=== PATIENT | male | born 1995 ===

== ENCOUNTER 2024-02-08 10:29 | Inpatient (IN) | payer OTHER ==
[~2024-02-08] VITALS: Ht 170.2 cm; Wt 89.8 kg
[2024-02-15] MEDS ORDERED: CEFTRIAXONE SODIUM 2,000 MG VIAL IV ONE (18:00)
[2024-02-15] MEDS ORDERED: METRONIDAZOLE/SODIUM CHLORIDE 500 MG/100 ML PIGGYBACK IV ONE (18:00)
[2024-02-15] MEDS ORDERED: BUPIVACAINE HCL 30 ML VIAL IJ ONE (18:00)
[2024-02-15] MEDS ORDERED: LIDOCAINE HCL 1%/EPINEPHRINE 20ML VIAL IJ ONE (18:00)
[2024-02-15] MEDS ORDERED: MORPHINE SULFATE 4 MG/ML CARTRIDGE IV PRN (20:30)
[2024-02-15] MEDS ORDERED: ONDANSETRON HCL 2 MG/ML VIAL IV PRN (20:30)
[2024-02-15] MEDS ORDERED: DEXTROSE 50 % IN WATER 0.5 G/ML DISP.SYRIN IV PRN (20:30)
[2024-02-15] MEDS ORDERED: OxyCODONE HCL 5 MG TABLET (ROXICODONE) PO PRN (20:30)
[2024-02-15] MEDS ORDERED: RINGERS SOLUTION,LACTATED 1,000 ML IV SCH (20:30)
[2024-02-15] MEDS ORDERED: SIMETHICONE 125 MG CAPSULE PO SCH (21:00)
[2024-02-15] MEDS ORDERED: FAMOTIDINE/PF 20 MG/2 ML VIAL IV PUSH SCH (21:00)
[2024-02-15] MEDS ORDERED: MORPHINE SULFATE 4 MG/ML VIAL IV ONE (22:10)
[2024-02-15 23:25] LABS: HEMATOCRIT 43.9 % (39.0-48.0); HEMOGLOBIN 15.2 g/dL (13-16.00); MEAN CELL VOLUME 82.5 fL (80.0-100.00); MEAN CORPUSCULAR HEMOGLOBIN 28.5 pg (27.00-32.0); MEAN CORPUSCULAR HGB CONC 34.5 g/dl (32.0-36.0); PLATELET COUNT 206 K/uL (150-450); RED BLOOD COUNT 5.32 M/uL (4.00-6.00)
[2024-02-16] MEDS ORDERED: GABAPENTIN 300 MG CAPSULE PO SCH (01:00)
[2024-02-16] MEDS ORDERED: ACETAMINOPHEN 500 MG GEL..CAP PO SCH (02:00)
[2024-02-16 03:40] VITALS: BP 160/85; O2SAT 96
[2024-02-16] MEDS ORDERED: CELECOXIB 200 MG CAPSULE PO SCH (05:00)
[2024-02-16 08:00] VITALS: BP 136/79; O2SAT 92
[2024-02-16] MEDS ORDERED: LACTOBACILLUS ACIDOPHILUS 1 CAP CAP PO SCH (09:00)
[2024-02-16] MEDS ORDERED: HYOSCYAMINE SULFATE 0.125 MG TAB.SUBL SL SCH (09:00)
[2024-02-16] MEDS ORDERED: LACTULOSE 20 G/30 ML BLIST.PACK PO SCH (09:00)
[2024-02-16 09:34] LABS: HEMATOCRIT 45.3 % (39.0-48.0); HEMOGLOBIN 15.4 g/dL (13-16.00); MEAN CELL VOLUME 83.8 fL (80.0-100.00); MEAN CORPUSCULAR HEMOGLOBIN 28.4 pg (27.00-32.0); MEAN CORPUSCULAR HGB CONC 33.9 g/dl (32.0-36.0); PLATELET COUNT 218 K/uL (150-450); RED CELL DISTRIBUTION WIDTH 12.8 % (11.5-14.5)
[2024-02-16 10:49] LABS: ALBUMIN 3.8 gm/dL (3.4-5.0); CALCIUM 9.1 mg/dL (8.5-10.1); CREATININE SERUM 0.96 mg/dL (0.70-1.30); GFR 93.27; PHOSPHOROUS 4.2 mg/dL (2.5-4.9); POTASSIUM 4.46 mEq/L (3.5-5.1)
[2024-02-16 16:00] VITALS: BP 141/75; O2SAT 97
[2024-02-16] MEDS ORDERED: POLYETHYLENE GLYCOL 3350 17 GM BLIST.PACK PO SCH (17:00)
[2024-02-16] MEDS ORDERED: ENOXAPARIN SODIUM 40 MG/0.4 ML SYRINGE SUBCUTANEO SCH (17:00)
[2024-02-17 01:15] VITALS: BP 141/78; O2SAT 96
[2024-02-17 08:00] VITALS: BP 128/85; O2SAT 94
[2024-02-17] MEDS ORDERED: ENOXAPARIN SODIUM 40 MG/0.4 ML SYRINGE SUBCUTANEO SCH (09:00)
[2024-02-17 17:17] VITALS: BP 150/88; O2SAT 99
[2024-02-18] VITALS: BP 110/69; O2SAT 95
[2024-02-18] MEDS ORDERED: MORPHINE SULFATE 4 MG/ML CARTRIDGE IV PRN (03:00)
[2024-02-18 08:00] VITALS: BP 131/73; O2SAT 99
[2024-02-18] MEDS ORDERED: INTESTINEX680 M1 PO (14:42)
[2024-02-18] MEDS ORDERED: NEURONTIN300 MG PO (14:43)
== END 2024-02-18 17:18 | disposition home or self-care (01) | DRG 330 ==
LOC: SURH 02-15 07:00 → O/R 02-15 09:55 → SURH 02-15 10:45
PROVIDERS: ADMIT Colon & Rectal Surgery; ATTEND Colon & Rectal Surgery
PROC: 0DBP4ZZ Excision of Rectum, Percutaneous Endoscopic Approach (ICD-10-PCS; 2024-02-15)
PROC: 0DTN4ZZ Resection of Sigmoid Colon, Percutaneous Endoscopic Approach (ICD-10-PCS; principal; 2024-02-15 07:00)
DX: K57.32 Diverticulitis of large intestine without perforation or abscess without bleeding (principal); K92.1 Melena